=== PATIENT | female | born 1970 | race Caucasian/White ===

== ENCOUNTER → 2017-08-28 | Outpatient (CLI) | payer BC ==
[~2017-08-28] MED LIST: ALLEGRA 180MG180 MG PO; BACTRIM DS 8001 TA1 PO; BACTROBAN22 TP; CYTOMEL25 MCG PO; JANUVIA100 MG PO; LEVOXYL0.15 MG PO; VITAMIN D5000 IU PO; ZYRTEC 10MG TAB10 MG PO
--- NOTE | 2017-08-28 17:16 | RADIOLOGY REPORT PS360 ---
FOOT-LT-3 VIEWS HISTORY: LEFT FOOT PAIN ORDERING PHYSICIAN: RHODA ROLLINS APRN PATIENT AGE: 47 years COMPARISON: None FINDINGS: No fracture or dislocation. No lytic or blastic change. There is normal mineralization.. The joint spaces are well-preserved. Mild hypertrophic changes are present involving the navicular cuneiform joint dorsally. IMPRESSION: 1. No acute finding. 2. Minimal degenerative change
== END ==
LOC: RAD 16:59
DX: M79.672 Pain in left foot (principal)